=== PATIENT | female | born 1990 | race Caucasian/White ===

== ENCOUNTER 2022-03-02 07:52 | Outpatient (CLI) | payer OTHER, SELFPAY ==
--- NOTE | 2022-03-02 08:03 | ECG_ITS ---
Measurements Intervals [place] Rate: 67 P: 40 CA: 130 QRS: 28 QRSD: 101 T: 32 QT: 367 QTc: 387 Interpretive Statements SINUS RHYTHM NORMAL ECG NO PREVIOUS ECG AVAILABLE FOR COMPARISON Electronically Signed On 03-02-2022 17:27:48 CDT by Kiel Castro M.D.
[2022-03-02 08:44] LABS: Hemoglobin 12.3 g/dL (12.0-15.0)
== END 2022-03-02 07:53 | disposition home or self-care (01) ==
LOC: ANHSURGERY 07:58
PROVIDERS: Anesthesiology; Visit Provider Surgery Plastic and Reconstructive Surgery
DX: Z01.818 Encounter for other preprocedural examination (principal); N64.82 Hypoplasia of breast
CPT/HCPCS: 36415; 85014; 85018; 93005

== ENCOUNTER 2022-03-05 00:10 | Day surgery (SDC) | payer OTHER, SELFPAY ==
[2022-02-25 10:07] VITALS: BMI 30.4
--- NOTE | 2022-02-25 10:08 | SUR.PREOP ---
Report to the Outpatient Waiting Room, entrance under the green pavilion located off [facility], at time _0600 on date _03/05/22 . OR Time: _729 . Time changes happen often and if your time is changed the preop area will call you the afternoon before. - You and your visitor will be asked to self-screen and do not enter if you have any COVID symptoms. - Only one visitor and NO children visitors are allowed at this time. - The patient visitor is requested to leave or wait in car when not with patient due to restrictions. - A mask is required within the hospital. Patients may have clear liquids (water, carbonated beverages, clear teas, apple juice) until 3 hours prior to surgery with a maximum of 20 ounces. - No food from midnight until time of surgery - Infants may have breast milk until 4 hours before surgery, formula 6 hours prior to surgery. - Children will be allowed to drink immediately following surgery. If applicable, please bring a bottle or sippy cup to assist with drinking. Juice, water, soda, and popsicles are readily available. For infants on formula, please bring formula the day of surgery. Pacifiers are allowed. Take the following medications with a SIP of water the morning of surgery: __gabapentin Medications to discontinue per physician n/a Date to take last dose__n/a Please no make-up, nail vietnamese, hairspray, perfume, deodorant, or body powder the day of surgery. No jewelry (including any body piercings) or valuables the day of surgery, leave them at home. Please take a shower or bath the night before, or the morning of, surgery with an antibacterial soap. Wear comfortable, loose fitting clothing. Children are encouraged to wear pajamas. - Jewelry must be removed prior to entering the operating room. Rings and piercings that are not removed may be cut off. - The hospital will not accept responsibility for valuables. - Please leave all valuables, including medications, at home the day of surgery. If you are going home after surgery, a licensed personal driver must drive you home. - NO public transportation without another adult. - We recommend that an adult stay with you for 24 hours following discharge. - We also recommend that you do not drive, make important decision, drink alcoholic beverages, or take any drugs that were not prescribed by your health care provider for at least 24 hours after your discharge time. For Pediatric surgeries, we recommend two adults accompany the child home (only one inside the building at this time). Follow any additional instructions given to you from your surgeon. If you or anyone in your household have experienced Covid symptoms in the past week, please notify your surgeon or the nurse liaison at the phone number below for possible testing. Telephone instructions given to _lubna briseno and asked if any additional questions and then verbalized understanding. Patient advised to call surgeon office or pre surgery nurse liaison [phone] if any additional questions.
[2022-03-05] VITALS (8 sets, daily range): BP systolic 115–141; BP diastolic 73–92; PULSE 62–87; RESP 10–16; TEMP 36.2; O2SAT 99–100
[2022-03-05 06:32] LABS: Urine Cotinine NEGATIVE
--- NOTE | 2022-03-05 06:39 | WPDHPUPDATE1 ---
History and Physical Update Update Date/Time: 03/05/22 06:39 History and Physical has been reviewed, including an updated exam of the patient. There are NO changes in the patient's condition. Risks, benefits, and alternatives have been discussed and questions answered. Patient agrees to proceed with procedure.
[2022-03-05] MEDS: LACTATED RINGERS 1,000 ML 30 ML IV CONT ×2 (06:40→09:31)
--- NOTE | 2022-03-05 06:51 | P.OP_ITS ---
Procedure Note - Detailed Date of Procedure 03/05/22 Pre-op Diagnosis micromastia, breast ptosis Post-op Diagnosis Same Procedure Performed Bilateral Augmentation Mastopexy Surgeon Naren Walker MD Anesthesia General Findings Inverted T Superior pedicle Bilateral Fiordaliza Judge SoftTouch 445cc Right REF# [id number] SN [id number] Left REF# [id number] SN [id number] Description of Procedure She is here today for bilateral breast augmentation mastopexy. Previously and again today the risks, benefits, alternatives were discussed in extensive detail. She has minimal lift needed on left and she does want to proceed with symmetry procedure. Also she understands she may have residual areola which would be addressed in a second stage. I wanted her to be very realistic about the risks involved as well as expectations. We discussed aftercare and what to monitor for. Made sure answered all of her questions to her satisfaction today and consent was obtained. Marked in the preoperative holding area with their verification. The patient was taken to the operating room placed supine on the operating table. Anesthesia was provided by anesthesiology. A surgical time-out was taken. We cleansed the skin and 1% lidocaine and 0.25% Marcaine with epinephrine was used anesthetize as a field block. She was prepped and draped in a standard sterile fashion. Tegaderm nipple Monroe were placed. A 15 blade used to make an incision just superior to the inframammary fold leaving a cusp of de-epithelized tissue at the t junction. Dissection was continued until the chest wall as identified. I incised the pectoralis major along its inferior border and completely released the inferior border leaving the medial border intact. I created a subpectoral pocket in the appropriate dimensions based on our preoperative planning for the implant. I then copiously irrigated with saline solution and verified a strict hemostasis. Next the use a triple antibiotic and Betadine containing solution to irrigate the pocket. I washed my gloves with the triple antibiotic and Betadine solution. We washed the implant immediately upon opening it with this solution and only opened it when we needed it. I used implant funnel and no-touch technique. The implant was introduced into the pocket using the funnel. Having verified positioning of the implant this was closed using 2-0 Vicryl. I tailor tacked the breast into position. Placed her in a sitting position. Ve rified the nipple-areolar location based on preoperative planning as well as intraoperative observations and measurements in full agreement. She was placed supine. I de-epithelialized the pedicle. I then removed the inferior central portion of the breast need making sure the implant was well protected. I elevated medial and lateral tissue flaps as well for planned closure. I closed along the IMF with 2-0 Stratafix. Along the vertical with 2-0 PDS. I closed around the Joseph with 3-0 strata fix. 3-0 Monocryl along the vertical. 3-0 Stratafix along the IMF. I finally closed everything with running subcuticular 4-0 Monocryl and tissue glue. Fluffs and surgical bra were placed. Estimated Blood Loss 20 Drains No Packing No Pathology None sent Complications No immediate complications Condition Stable Disposition PACU
--- NOTE | 2022-03-05 07:10 | P.PNAN_ITS ---
Anes - Initial Pre Proc Eval Procedure: Operation Date: 03/05/22 07:30 Proposed Procedures p Bilateral Breast Augmentation, - Naren Walker MD s Bilateral Breast Mastopexy - Naren Walker MD Date/Time: 03/05/22 07:10 Surgeon: Naren Walker MD Pre Op Diagnosis: micromastia, breast ptosis Patient Data Age: 31 Gender: F Height: 1.68 m Weight: 83.75 kg Allergies Allergy/AdvReac Type Severity Reaction Status Date / Time No Known Allergies Allergy Unverified 03/05/22 06:57 Home Medications Medication Instructions Recorded Confirmed Type gabapentin 100 mg PO DAILY 01/07/22 03/05/22 History Laboratory Tests 03/05/22 06:16 Cotinine Negative Patient hx anesthesia problems: none Family hx anesthesia problems: none Results Review: All pre-operative results and documents have been reviewed as part of the pre- operative evaluation. [facility] Surgical History Surgical History (Updated 01/07/22 @ 10:44 by Shannan Amor) History of tonsillectomy Family History Family History (Updated 01/07/22 @ 10:44 by Shannan Amor) Mother Diabetes mellitus Social History Social History (Updated 01/07/22 @ 10:44 by Shannan Amor) Smoking status: Never smoker Alcohol intake: current Drinks per week: 4 Substance use: current Substance use type: marijuana Other substance usage details: smoking 2x a daily stopped 2 weeks Living arrangements: with family Spiritual care concerns: No Anes - Eval Final PreProcedure Day of Procedure 03/05/22 07:10 Patient weight: normal Heart: regular rate and rhythm Lungs: clear to auscultation Airway: Mallampati scale class II Neurological: alert and oriented Last oral intake: >/= 8 hours ASA classification: II Emergent: no Anesthetic plan: proceed Anesthesia type and monitoring: general LMA and standard monitoring Results Review: All pre-operative results and documents have been reviewed as part of the pre- operative evaluation. Informed Consent: The patient's anesthetic plan and its attendant risks and benefits were d iscussed with the patient/family/POA. Questions were solicited and answers provided to the satisfaction of the patient/family/POA.
[2022-03-05] MEDS: NACL 0.9% IRRIG POUR BOTTLE 900 ML, GENTAMICIN SULFATE INJ 160 MG, ceFAZolin 2 GM, POVI... IRRIGATION (07:28)
[2022-03-05] MEDS: LIDOCAINE HCL 1% PF 30 ML VIAL INFILTRATE (07:28)
[2022-03-05] MEDS: BUPIVACAINE/EPINEPHRINE 0.25% 50 ML VIAL 30 ML INFILTRATE (07:28)
[2022-03-05] MEDS: TRANEXAMIC ACID 1,000MG/ISO100 1,000 MG/100 ML BAG 200 MG IVPB (07:28)
[2022-03-05] MEDS: ceFAZolin 2 GM/D5W 50 ML 2 GM/50 ML BAG IVPB (07:35)
[2022-03-05] MEDS: oxyCODONE HCL (*CRX) 5 MG TAB IR PO (11:24)
== END 2022-03-05 12:05 | disposition home or self-care (01) ==
PROVIDERS: Visit Provider Surgery Plastic and Reconstructive Surgery
PROC: (CPT 19316; principal; 2022-03-05 07:30)
PROC: (CPT 19316; 2022-03-05 07:30)
DX: N64.82 Hypoplasia of breast (principal); N64.81 Ptosis of breast; Z87.891 Personal history of nicotine dependence
CPT/HCPCS: 19316; 19325; 80307; A9270; J0171; J0690; J1100; J1170; J1580; J2250; J2405; J2704; J3010; J7120